=== PATIENT | female | born 1990 | race Caucasian/White ===

== ENCOUNTER 2019-11-23 16:27 | Emergency (ER) | payer OTHER ==
--- NOTE | 2019-11-23 16:58 | RAD ---
EXAM DESCRIPTION: Foot,Right 3 Views CLINICAL HISTORY: 29 years Female Poss Fracture COMPARISON: None TECHNIQUE: : AP, lateral and oblique views of the right foot are obtained. FINDINGS: OSSEOUS: There is no evidence of acute fracture or osteolytic/osteoblastic lesions. There is no evidence of subluxation or dislocation. The joint spaces are preserved. Hypertrophic changes are noted along the superior aspect of the navicular bone. There is no evidence of marginal erosive changes to suggest an inflammatory arthritis. The ankle mortise is symmetric with a smooth talar dome and no evidence of widening of the distal tibiofibular syndesmosis. SOFT TISSUES: There is no significant soft tissue swelling or mass. No evidence of significant soft tissue calcifications. No radiopaque foreign bodies. There is no evidence of an ankle joint effusion. IMPRESSION: No acute osseous abnormality. Remainder of findings as described above. Electronically signed by: Anabelle Francois MD 11/23/2019 4:57 PM CDT
[2019-11-23] MEDS ORDERED: KETOROLAC TROMETHAMINE INJ 60 MG/2 ML VIAL IM ONE (17:35)
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
[2019-11-23 19:08] VITALS: BP 120/56; O2SAT 99
[2019-11-23 19:32] VITALS: TEMP 97.6
== END 2019-11-23 19:25 | disposition home or self-care (01) ==
LOC: ER 16:27
DX: S93.601A Unspecified sprain of right foot, initial encounter (principal); F17.200 Nicotine dependence, unspecified, uncomplicated; W01.0XXA Fall on same level from slipping, tripping and stumbling without subsequent striking against object, initial encounter; Y92.9 Unspecified place or not applicable
CPT/HCPCS: 73630; J1885